=== PATIENT | female | born 1970 | race Caucasian/White ===

== ENCOUNTER 2016-03-24 13:43 | Emergency (ER) | payer MEDICAID ==
[~2016-03-24] VITALS: Wt 63.0 kg
[~2016-03-24 13:43] MED LIST: BACTDS PO; CEPH-443 PO; IBUP-1542 PO; PROM6.25 PO; SODI44SP11 NS
[2016-03-24] MEDS ORDERED: BACTDS PO (16:40)
[2016-03-24] MEDS ORDERED: CEPH-443 PO (16:41)
[2016-03-24] MEDS ORDERED: ACET500C5 PO (16:41)
--- NOTE | 2016-03-24 16:53 | ERD ---
ER Documentation Chief Complaint Date/Time DATE: 03/24/16 TIME: 16:48 Chief Complaint right breast pain with redness and swelling for 4 days. no drainage HPI Patient is a 45-year-old diabetic female who presents to the ED with right breast pain, redness and swelling for 3 days. Denies drainage. Denies fever or chills. Denies previous history of this. Denies chest pain, cough, shortness of breath or difficulty breathing. Denies headache or dizziness. Denies abdominal pain, nausea, vomiting or diarrhea. States that her sugars are well controlled at home and on insulin. Denies polyphagia, polyuria or polydipsia. No other symptoms. ROS All systems reviewed and are negative except as per history of present illness. Medications Home Meds Active Scripts Acetaminophen* (Tylophen*) 500 Mg Capsule, 1 CAP PO Q6H Y for PAIN AND OR ELEVATED TEMP, #20 CAP Prov:LIZTARIANSOY PA-C 03/24/16 Cephalexin* (Keflex*) 500 Mg Capsule, 500 MG PO QID for 5 Days, CAP Prov:SHOANDREATARIANANAIAZ PA-C 03/24/16 Sulfamethoxazole-Trimethoprim* (Bactrim* DS) 800-160 Mg Tab, 1 TAB PO BID for 5 Days, TAB Prov:SHOANDREATARIANANAIAZ PA-C 03/24/16 Cephalexin* (Keflex*) 500 Mg Capsule, 500 MG PO QID for 10 Days, CAP Prov:CODY SU PA-C 12/14/15 Sulfamethoxazole-Trimethoprim* (Bactrim* DS) 800-160 Mg Tab, 1 TAB PO BID for 7 Days, TAB Prov:CODY SU PA-C 12/14/15 Sodium Chloride (Saline Nasal [place]) 45 Ml [place], 45 ML NS Q4 for 5 Days, SPRAY Prov:MU EMMANUEL 01/05/15 Promethazine w/Codeine* (Phenergan w/Codeine* Syrup) 5 Ml Syrup, 5 ML PO Q4H Y for COUGH for 7 Days, ML Prov:LIENMU MAXWELL 01/05/15 Ibuprofen* (Motrin*) 600 Mg Tab, 600 MG PO Q6H Y for PAIN AND OR ELEVATED TEMP, #30 Prov:EJ YU. SMASH HAND 08/05/14 Cephalexin* (Keflex*) 500 Mg Capsule, 500 MG PO Q12 for 7 Days, CAP Prov:EJ YU. SMASH HAND 08/05/14 Allergies Allergies: Coded Allergies: No Known Allergy (Verified , 01/05/15) PMhx/Soc History of Surgery: No Anesthesia Reaction: No Hx Neurological Disorder: No Hx Respiratory Disorders: No Hx Cardiac Disorders: Yes Hx Psychiatric Problems: No Hx Miscellaneous Medical Probl: Yes (DM II) Hx Alcohol Use: No Hx Substance Use: No Hx Tobacco Use: No Physical Exam Vitals Vital Signs Date Time Temp Pulse Resp B/P Pulse Ox O2 Delivery O2 Flow Rate FiO2 03/24/16 14:16 98.8 98 20 140/85 99 Physical Exam GENERAL: Well-developed, well-nourished female. Appears in no acute distress. NECK: Supple. No lymphadenopathy or thyromegaly. No meningismus. negative kernig. negative brudinski. LUNG: Clear to auscultation bilaterally. No rhonchi, wheezing, rales or coarse breath sounds. BREAST: 1 inch indurated abscess on right breast lateral to nipple. no drainage. superficial and indurated HEART: Regular rate and rhythm. No murmurs, rubs or gallops. Extremities: Equal pulses bilaterally. No peripheral clubbing, cyanosis or edema. No unilateral leg swelling. NEUROLOGIC: Alert and oriented. Moving all four extremities. 5/5 strength in all extremities. Normal speech. Steady gait. SKIN: Normal color. Warm and dry. No rashes or lesions. Capillary refill < 2 seconds Procedures/MDM ER COURSE: I kept the patient and/or family informed of laboratory and diagnostic imaging results throughout the emergency room course. MEDICAL DECISION MAKING: This is a 45-year-old diabetic type II on insulin female who presents with right breast pain and swelling. Vital signs were reviewed. Patient is afebrile. Patient is not hypoxic. Patient likely has a abscess to her right breast. However due to the induration and the proximity to the nipple I will not be incision and draining it here in the ED. the 1 inch abscess is also indurated. I do not think a ultrasound is needed at this time as the abscess is superficial and she has not had fever chills. Low suspicion for necrotizing fasciitis, SJS, toxic epidermal necrolysis, [place], erythema multiforme, gangrene, scarlet fever, meningococcemia, sepsis, anaphylaxis, sepsis, deep space infection, or foreign body. DISCHARGE: At this time, patient is stable for discharge and outpatient management with no new complaints during the ER course. Patient was sent home with Bactrim and Keflex. Patient advised to return to the ED in 2 days for recheck.. Patient will be discharged home with instructions to recheck for new or worsening symptoms such as fever, nausea, weakness, LOC and to follow up with primary care in the next 1-2 days. Patient was advised to return to the ER for any new or worsening symptoms. Plan was discussed and patient and/or family understands and agrees. Home instructions were given. Departure Diagnosis: Primary Impression: Abscess Condition: Stable Patient Instructions: Abscess, Antiobiotic Treatment Only Additional Instructions: Llame al doctor MAANA y gregg adam ILDA PARA DENTRO DE 1-2 AYALA.Dgale a la secretaria que nosotros le instruimos hacer esta ilda.Avise o llame si molina condicin se empeora antes de la ilda. Regresa aqui si peor o no mejor. SOY WALLS PA-C Mar 24, 2016 16:53
== END 2016-03-24 17:05 | disposition home or self-care (01) ==
LOC: FTE 13:43
DX: N61.1 Abscess of the breast and nipple (principal); E11.9 Type 2 diabetes mellitus without complications
CPT/HCPCS: 99284

== ENCOUNTER 2016-04-04 09:53 | Emergency (ER) | payer MEDICAID ==
[~2016-04-04] VITALS: Ht 152.4 cm; Wt 65.0 kg
[~2016-04-04 09:53] MED LIST changes: +ACET500C5 PO
[2016-04-04 11:03] VITALS: Ht 152.4 cm; Wt 65.0 kg
--- NOTE | 2016-04-04 11:16 | ERD ---
ER Documentation Chief Complaint Date/Time DATE: 04/04/16 TIME: 11:13 Chief Complaint right breast pain,right nipple discharge HPI 45-year-old female complaining of right breast pain and drainage. Patient was seen here 10 days ago for a cellulitis and abscess of the right breast. She was given Bactrim and Keflex p.o. and asked to return here in 2 days for wound check. She did not follow-up in 2 days. She has finished all the antibiotics prescribed. Denies fever or chills. Patient has history of type 2 diabetes, is on insulin. ROS All systems reviewed and are negative except as per history of present illness. Medications Home Meds Active Scripts Ibuprofen* (Motrin*) 600 Mg Tab, 600 MG PO Q6H Y for PAIN AND OR ELEVATED TEMP, #30 TAB Prov:EJ YU CUSTOMER DEVELOPMENT MANAGER 04/04/16 Acetaminophen* (Tylophen*) 500 Mg Capsule, 1 CAP PO Q6H Y for PAIN AND OR ELEVATED TEMP, #20 CAP Prov:KILLIANANSOY PA-C 03/24/16 Cephalexin* (Keflex*) 500 Mg Capsule, 500 MG PO QID for 5 Days, CAP Prov:SHOANDREATARIANANAIAZ PA-C 03/24/16 Sulfamethoxazole-Trimethoprim* (Bactrim* DS) 800-160 Mg Tab, 1 TAB PO BID for 5 Days, TAB Prov:SHOANDREATARIANANAIAZ PA-C 03/24/16 Cephalexin* (Keflex*) 500 Mg Capsule, 500 MG PO QID for 10 Days, CAP Prov:CODY SU-C 12/14/15 Sulfamethoxazole-Trimethoprim* (Bactrim* DS) 800-160 Mg Tab, 1 TAB PO BID for 7 Days, TAB Prov:CODY SU PA-C 12/14/15 Sodium Chloride (Saline Nasal [place]) 45 Ml [place], 45 ML NS Q4 for 5 Days, SPRAY Prov:MU EMMANUEL 01/05/15 Promethazine w/Codeine* (Phenergan w/Codeine* Syrup) 5 Ml Syrup, 5 ML PO Q4H Y for COUGH for 7 Days, ML Prov:MU EMMANUEL 01/05/15 Ibuprofen* (Motrin*) 600 Mg Tab, 600 MG PO Q6H Y for PAIN AND OR ELEVATED TEMP, #30 Prov:EJ YU. CUSTOMER DEVELOPMENT MANAGER 08/05/14 Cephalexin* (Keflex*) 500 Mg Capsule, 500 MG PO Q12 for 7 Days, CAP Prov:EJ YU. CUSTOMER DEVELOPMENT MANAGER 08/05/14 Allergies Allergies: Coded Allergies: No Known Allergy (Verified , 01/05/15) PMhx/Soc Medical and Surgical Hx: pt denies Medical Hx History of Surgery: No Anesthesia Reaction: No Hx Neurological Disorder: No Hx Respiratory Disorders: No Hx Cardiac Disorders: No Hx Psychiatric Problems: No Hx Miscellaneous Medical Probl: No Hx Alcohol Use: No Hx Substance Use: No Hx Tobacco Use: No Physical Exam Vitals Vital Signs Date Time Temp Pulse Resp B/P Pulse Ox O2 Delivery O2 Flow Rate FiO2 04/04/16 11:03 98.7 80 16 130/76 98 Physical Exam General impression: Well-developed, well-nourished. Alert, oriented, in no acute distress Head: Normocephalic, atraumatic. Eyes: PERRL, EOM normal. Conjunctiva not injected. Respiration: Normal respiratory effort. Lungs clear to auscultate bilaterally. No wheezes, rales or rhonchi. Cardiovascular: Regular rate and rhythm. No murmurs or extra heart sounds. Abdomen: Abdomen normal to inspection. Nontender. No masses or organomegaly. Bowel sounds normal. Breasts: Lateral aspect the right breast erythematous, with necrotic tissue. Tender to palpation. Back: Normal to inspection. No midline spine tenderness. No CVA tenderness. Neuro: Mental status normal, speech normal. CLINICAL ADMINISTRATIVE COORDINATOR grossly intact. Skin: Normal turgor. No rash or lesions. Psych: Normal mood and affect. Results 24 hrs Current Medications Medications (Trade) Dose Ordered Sig/Bruna Route PRN Reason Start Time Stop Time Status Last Admin Dose Admin Lidocaine (Xylocaine 1% (Mdv) 20 ml) 20 ml ONCE ONCE SC 04/04/16 11:30 04/04/16 11:31 DC Procedures/MDM Procedure note: Incision and Drainage Verbal consent obtained for incision and drainage of patient's abscess. The area was prepped with Betadine. Lidocaine 1% was infiltrated for local anesthesia. After appropriate anesthesia, necrotic tissue was excised from the abscess. Small amount of purulent discharge was drained from the abscess. The abscess was probed for loculation. Iodoform 1/4" packing tape was inserted into the abscess. The wound was then cleaned and dressed. Patient tolerated procedure well. Medical decision-making: Well-appearing 45-year-old female with history of diabetes presented to ED with right breast abscess. Upon incision and drainage, it appears that the whole abscesses is filled with necrotic tissue. Mostly necrotic tissue was removed. Patient afebrile. I doubt sepsis. I feel patient could benefit from continued wound care. Patient referred to amputation prevention center for follow-up here. Patient appears well, stable for discharge and outpatient management. Medical decision making shared with patient and family. Education provided to patient and family. Patient and family expressed understanding of the plan. Medications on discharge: Ibuprofen. Follow-up: Primary care provider in 2-3 days or return to ED if worse. EJ YU NP Apr 04, 2016 11:16
[2016-04-04] MEDS ORDERED: LIDOCAINE 1% (MDV) 20 ML INJ SC ONE (11:30)
[2016-04-04] MEDS ORDERED: IBUP-1542 PO (11:53)
== END 2016-04-04 12:58 | disposition home or self-care (01) ==
LOC: FTE 09:53
DX: N61.1 Abscess of the breast and nipple (principal); E11.9 Type 2 diabetes mellitus without complications
CPT/HCPCS: 10061; Z7502; Z7610

== ENCOUNTER 2017-11-17 08:17 | Emergency (ER) | END 2017-11-17 10:03 | disposition home or self-care (01) ==

== ENCOUNTER 2018-05-22 11:38 | Emergency (ER) | payer MEDICAID ==
[~2018-05-22] VITALS: Ht 152.4 cm; Wt 54.4 kg
[~2018-05-22 11:38] MED LIST changes: +AMOX1TAB10 PO; +FLUT9.9S NASAL
[2018-05-22 11:51] VITALS: Ht 152.4 cm; Wt 54.4 kg
[2018-05-22] MEDS ORDERED: KETOROLAC 30 MG INJ IM STA (12:39)
--- NOTE | 2018-05-22 12:58 | ERD ---
ER Documentation Chief Complaint Chief Complaint abscess @ buttocks area HPI 47-year-old female with poorly controlled diabetes type 2 who presents with complaint of left buttock abscess. Dates believe she has an abscess on the left buttock with worsening pain. Has history of previous abscess and right armpit that required drainage last year. States she does not regularly follow up with her PMD. Takes insulin for her diabetes and has noticed elevated sugars. She is otherwise without complaint and denies fevers chills. I explained to patient in detail the need to follow-up with PMD closely given her diabetic history and frequent abscesses. She does not recall ever having a tetanus shot. ROS All systems reviewed and are negative except as per history of present illness. Medications Home Meds Active Scripts Cephalexin* (Keflex*) 500 Mg Capsule, 500 MG PO QID for 10 Days, CAP Prov:SANNA CONN-C 05/22/18 Sulfamethoxazole/Trimethoprim* (Bactrim Ds* Tablet) 1 Each Tablet, 1 TAB PO BID for 7 Days, #14 TAB Prov:SANNA CONN-C 05/22/18 Hydrocodone/Acetaminophen ([place] 5-325 Tablet) 1 Each Tablet, 1 TAB PO Q6H PRN for PAIN, #20 TAB Prov:SANNA CONN-C 05/22/18 Fluticasone Propionate (Flonase Allergy Relief) 9.9 Ml [place].susp, 1 SPRAY NASAL BID, #1 BOTTLE TO EACH NOSTRIL Prov:DOUGIE ENCARNACION-C 11/17/17 Amoxicillin/Potassium Clav (Amox-Clav 875-125 mg Tablet) 875-125 mg Tab, 1 TAB PO BID for 7 Days, #14 TAB Prov:DOUGIE ENCARNACION PA-C 11/17/17 Ibuprofen* (Motrin*) 600 Mg Tab, 600 MG PO Q6H PRN for PAIN AND OR ELEVATED TEMP, #30 TAB Prov:EJ YU NP 04/04/16 Acetaminophen* (Tylophen*) 500 Mg Capsule, 1 CAP PO Q6H PRN for PAIN AND OR ELEVATED TEMP, #20 CAP Prov:SOY WALLS PA-C 03/24/16 Cephalexin* (Keflex*) 500 Mg Capsule, 500 MG PO QID for 5 Days, CAP Prov:LIZSOY GILL-C 03/24/16 Sulfamethoxazole-Trimethoprim* (Bactrim* DS) 800-160 Mg Tab, 1 TAB PO BID for 5 Days, TAB Prov:SOY WALLS-C 03/24/16 Cephalexin* (Keflex*) 500 Mg Capsule, 500 MG PO QID for 10 Days, CAP Prov:CODY SU-C 12/14/15 Sulfamethoxazole-Trimethoprim* (Bactrim* DS) 800-160 Mg Tab, 1 TAB PO BID for 7 Days, TAB Prov:CODY SU-C 12/14/15 Sodium Chloride (Saline Nasal [place]) 45 Ml [place], 45 ML NS Q4 for 5 Days, SPRAY Prov:MU EMMANUEL 01/05/15 Promethazine w/Codeine* (Phenergan w/Codeine* Syrup) 5 Ml Syrup, 5 ML PO Q4H PRN for COUGH for 7 Days, ML Prov:MU EMMANUEL 01/05/15 Ibuprofen* (Motrin*) 600 Mg Tab, 600 MG PO Q6H PRN for PAIN AND OR ELEVATED TEMP, #30 Prov:EJ YU. BROKE WORKER 08/05/14 Cephalexin* (Keflex*) 500 Mg Capsule, 500 MG PO Q12 for 7 Days, CAP Prov:EJ YU. BROKE WORKER 08/05/14 Allergies Allergies: Coded Allergies: No Known Allergy (Verified , 01/05/15) PMhx/Soc History of Surgery: No Anesthesia Reaction: No Hx Neurological Disorder: No Hx Respiratory Disorders: No Hx Cardiac Disorders: No Hx Psychiatric Problems: No Hx Miscellaneous Medical Probl: Yes (dm) Hx Alcohol Use: No Hx Substance Use: No Hx Tobacco Use: No FmHx Family History: diabetes; No coronary disease, No other Physical Exam Vitals Vital Signs Date Temp Pulse Resp B/P (MAP) Pulse Ox O2 O2 Flow FiO2 Time Delivery Rate 05/22/18 98.3 106 19 140/74 100 11:51 (96) Physical Exam Const: No acute distress Head: Atraumatic Eyes: Normal Conjunctiva ENT: Normal External Ears, Nose and Mouth. Neck: Full range of motion. No meningismus. Resp: Clear to auscultation bilaterally Cardio: Regular rate and rhythm, no murmurs Abd: Soft, non tender, non distended. Normal bowel sounds Skin: No petechiae or rashes Back: No midline or flank tenderness Ext: No cyanosis, or edema Neur: Awake and alert Psych: Normal Mood and Affect Results 24 hrs Current Medications Medications Dose Sig/Bruna Start Time Status Last (Trade) Ordered Route PRN Stop Time Admin Dose Reason Admin Lidocaine 20 ml ONCE ONCE 05/22/18 DC 05/22/18 (Xylocaine SC 13:00 05/22/18 13:00 1% (Mdv) 20 13:01 ml) Ketorolac 30 mg ONCE STAT 05/22/18 DC 05/22/18 Tromethamine IM 12:39 05/22/18 12:59 (Toradol) 12:43 Diphtheria/ 0.5 ml ONCE ONCE 05/22/18 DC 05/22/18 Tetanus/Acell IM* 13:00 05/22/18 12:59 Pertussis 13:01 (Adacel) Procedures/MDM 47-year-old female with history of diabetes type 2 who presents with uncomplicated left buttock abscess. Nonseptic in appearance. Low c/f osteomy elitis or DVT. No immune compromise, bullae, pain out of proportion, or rapid progression c/f necrotizing fasciitis. ED Intervention: Patients abscess has been incised with acceptable resolution Rx: Bactrim DS BID Keflex QID [place] Disposition: At this point, patient is stable for discharge, advised to follow up with primary care physician in 48 hours. She has been advised to return for 2 days for wound check. Procedure: I and D Attention at this point was placed on the patients L buttock posterior iliac region where the abscess is located. A time out was undertaken to determine that this was the correct patient and the correct procedure for this patient. The skin was prepped and cleansed in the usual sterile fashion. Lidocaine 1% was injected into the dome of the abscess. Once analgesia was obtained, an 11 blade scalpel was used to make 1 cm incision. At this point moderate amount of bloody, purulent fluid was expressed. Wound was irrigated The patient tolerated this procedure well and there were no complications. A dry sterile dressing was placed. Small amount of packing placed. DISPOSITION PLAN: We discussed follow up with the patient's primary care doctor within 24 to 48 hours. Patient counseled regarding my diagnostic impression and care plan. Prior to discharge all questions answered. Pt agrees with treatment plan and understands strict return precautions. Precautionary instructions provided including instructions to return to the ER if not improving or for any worsening or changing symptoms or concerns. Departure Condition: Stable Patient Instructions: Abscess, Incision And Drainage SANNA CONN PA-C May 22, 2018 12:58
[2018-05-22] MEDS ORDERED: LIDOCAINE 1% (MDV) 20 ML INJ SC ONE (13:00)
[2018-05-22] MEDS ORDERED: DIPHTH/TET/ACEL PERTUSS (ADULT) 0.5 ML VIAL IM* ONE (13:00)
[2018-05-22] MEDS ORDERED: HYDR-4011 PO (13:22)
[2018-05-22] MEDS ORDERED: SULF1TAB31 PO (13:24)
[2018-05-22] MEDS ORDERED: CEPH-443 PO (13:24)
[2018-05-22 14:12] VITALS: BP 132/75; PULSE 88; RESP 19
== END 2018-05-22 13:56 | disposition home or self-care (01) ==
LOC: FTE 11:38
DX: L02.31 Cutaneous abscess of buttock (principal); E11.9 Type 2 diabetes mellitus without complications; Z23 Encounter for immunization
CPT/HCPCS: 10060; 90471; 90715; 96372; J1885; Z7502; Z7610

== ENCOUNTER 2018-05-25 11:21 | Emergency (ER) | payer MEDICAID ==
[~2018-05-25] VITALS: Wt 70.0 kg
[~2018-05-25 11:21] MED LIST changes: +HYDR-4011 PO; +SULF1TAB31 PO
[2018-05-25 11:23] VITALS: BP 143/80; PULSE 86; RESP 18
--- NOTE | 2018-05-25 12:21 | ERD ---
ER Documentation Chief Complaint Chief Complaint LEFT BUTTOCKS WOUND CKKECK HPI 47-year-old female presents for recheck on the left buttock abscess drained 2 days ago. She is taking antibiotics patient has fevers, vomiting and pain is improved. ROS All systems reviewed and are negative except as per history of present illness. Medications Home Meds Active Scripts Cephalexin* (Keflex*) 500 Mg Capsule, 500 MG PO QID for 10 Days, CAP Prov:SANNA CONN PA-C 05/22/18 Sulfamethoxazole/Trimethoprim* (Bactrim Ds* Tablet) 1 Each Tablet, 1 TAB PO BID for 7 Days, #14 TAB Prov:SANNA CONN PA-C 05/22/18 Hydrocodone/Acetaminophen ([place] 5-325 Tablet) 1 Each Tablet, 1 TAB PO Q6H PRN for PAIN, #20 TAB Prov:SANNA CONN PA-C 05/22/18 Fluticasone Propionate (Flonase Allergy Relief) 9.9 Ml [place].susp, 1 SPRAY NASAL BID, #1 BOTTLE TO EACH NOSTRIL Prov:DOUGIE ENCARNACION-C 11/17/17 Amoxicillin/Potassium Clav (Amox-Clav 875-125 mg Tablet) 875-125 mg Tab, 1 TAB PO BID for 7 Days, #14 TAB Prov:DOUGIE ENCARNACION-C 11/17/17 Ibuprofen* (Motrin*) 600 Mg Tab, 600 MG PO Q6H PRN for PAIN AND OR ELEVATED TEMP, #30 TAB Prov:EJ YU NP 04/04/16 Acetaminophen* (Tylophen*) 500 Mg Capsule, 1 CAP PO Q6H PRN for PAIN AND OR ELEVATED TEMP, #20 CAP Prov:SHOANDREATARIAN,ANAIAZ PA-C 03/24/16 Cephalexin* (Keflex*) 500 Mg Capsule, 500 MG PO QID for 5 Days, CAP Prov:SHOOSHTARIAN,ANAIAZ PA-C 03/24/16 Sulfamethoxazole-Trimethoprim* (Bactrim* DS) 800-160 Mg Tab, 1 TAB PO BID for 5 Days, TAB Prov:SHOOSHTARIAN,TANNAZ PA-C 03/24/16 Cephalexin* (Keflex*) 500 Mg Capsule, 500 MG PO QID for 10 Days, CAP Prov:CODY SU-C 12/14/15 Sulfamethoxazole-Trimethoprim* (Bactrim* DS) 800-160 Mg Tab, 1 TAB PO BID for 7 Days, TAB Prov:CODY SU PA-C 12/14/15 Sodium Chloride (Saline Nasal [place]) 45 Ml [place], 45 ML NS Q4 for 5 Days, SPRAY Prov:MU EMMANUEL C 01/05/15 Promethazine w/Codeine* (Phenergan w/Codeine* Syrup) 5 Ml Syrup, 5 ML PO Q4H PRN for COUGH for 7 Days, ML Prov:MIRTHA EMMANUELNA C 01/05/15 Ibuprofen* (Motrin*) 600 Mg Tab, 600 MG PO Q6H PRN for PAIN AND OR ELEVATED TEMP, #30 Prov:EJ YU. YOUTH COURT JUDGE 08/05/14 Cephalexin* (Keflex*) 500 Mg Capsule, 500 MG PO Q12 for 7 Days, CAP Prov:EJ YU. YOUTH COURT JUDGE 08/05/14 Allergies Allergies: Coded Allergies: No Known Allergy (Verified , 01/05/15) PMhx/Soc History of Surgery: No Anesthesia Reaction: No Hx Neurological Disorder: No Hx Respiratory Disorders: No Hx Cardiac Disorders: No Hx Psychiatric Problems: No Hx Miscellaneous Medical Probl: Yes (dm) Hx Alcohol Use: No Hx Substance Use: No Hx Tobacco Use: No Smoking Status: Never smoker FmHx Family History: No diabetes, No coronary disease, No other Physical Exam Vitals Vital Signs Date Temp Pulse Resp B/P (MAP) Pulse Ox O2 O2 Flow FiO2 Time Delivery Rate 05/25/18 98.1 86 18 143/80 99 11:23 (101) Physical Exam Const: No acute distress Head: Atraumatic Eyes: Normal Conjunctiva ENT: Normal External Ears, Nose and Mouth. Neck: Full range of motion. No meningismus. Resp: Clear to auscultation bilaterally Cardio: Regular rate and rhythm, no murmurs Abd: Soft, non tender, non distended. Normal bowel sounds Skin: No petechiae or rashes. Left upper buttock with healing abscess and gauze in place. Minimal surrounding redness. No residual fluctuance, no significant induration or streaking. Back: No midline or flank tenderness Ext: No cyanosis, or edema Neur: Awake and alert Psych: Normal Mood and Affect Procedures/MDM Left buttock abscess gauze removed. Patient presents with satisfactory healing left buttock abscess without signs of necrotizing fasciitis, sepsis, residual abscess. She will discharged home with instructions for wound care and return precautions for worsening redness, fevers, new worsening symptoms. Disclaimer: Inadvertent spelling and grammatical errors are likely due to EHR/dictation software use and do not reflect on the overall quality of patient care. Also, please note that the electronic time recorded on this note does not necessarily reflect the actual time of the patient encounter. Departure Diagnosis: Primary Impression: Encounter for wound re-check Additional Impression: Abscess Condition: Stable Patient Instructions: Abscess (, Incision And Drainage) Additional Instructions: regresa jackelin pierre nueva simptomas.continua antibioticos. SAGAR KENNY MD May 25, 2018 12:21
== END 2018-05-25 12:54 | disposition home or self-care (01) ==
LOC: FTE 11:21
DX: Z48.01 Encounter for change or removal of surgical wound dressing (principal); E11.9 Type 2 diabetes mellitus without complications
CPT/HCPCS: 99281